=== PATIENT | female | born 1980 | race Two or more races ===

== ENCOUNTER 2017-08-29 19:23 | Emergency (ER) | payer BC, OTHER, SELFPAY ==
[~2017-08-29] VITALS: Ht 157.5 cm; Wt 70.2 kg
[2017-08-29] MEDS ORDERED: SODIUM CHLORIDE 0.9% 1,000ML IVBOLUS ONE (20:00)
[2017-08-29] MEDS ORDERED: KETOROLAC 30 MG/1 ML IVPush ONE (20:00)
[2017-08-29] MEDS ORDERED: METOCLOPRAMIDE 5 MG/ML, 2ML IVPush ONE (20:00)
[2017-08-29] MEDS ORDERED: SODIUM CHLORIDE FLUSH 10ML SYR IVF ONE (20:00)
[2017-08-29] MEDS ORDERED: DIPHENHYDRAMINE 50 MG/ML, 1ML IVPush ONE (20:00)
[2017-08-29] MEDS ORDERED: DIPHENHYDRAMINE 50 MG/ML, 1ML ONE (20:06)
[2017-08-29] MEDS ORDERED: KETOROLAC 30 MG/1 ML ONE (20:06)
[2017-08-29] MEDS ORDERED: METOCLOPRAMIDE 5 MG/ML, 2ML ONE (20:06)
[2017-08-29 20:11] LABS: HEMATOCRIT 41.8 % (34.6-47.8); HEMOGLOBIN 13.6 g/dL (11.7-16.4); WHITE BLOOD COUNT 7.1 x10^3/uL (3.4-10)
[2017-08-29 20:23] LABS: BLOOD UREA NITROGEN 11 mg/dL (7-18)
[2017-08-29 21:58] VITALS: BP 110/76
== END 2017-08-29 22:01 | disposition home or self-care (01) ==
LOC: ED 21:55
DX: R51 Headache (principal)
CPT/HCPCS: 36415; 70450; 80048; 82040; 84703; 85025; 96361; 96374; 96375; 99285; J1200; J1885; J2765; J7030